=== PATIENT | female | born 1965 | race Caucasian/White ===

== ENCOUNTER → 2025-04-25 | Outpatient (CLI) | payer MEDICAID, SELFPAY ==
--- NOTE | 2025-04-25 16:58 | XR_ITS ---
Examination: Hand, left 3 views Technique: Hand AP, oblique, lateral 3 views Date and time of exam: April 25, 2025 7011 hours INDICATIONS: Acute fracture left hand fifth digit 2 weeks ago FINDINGS: Early healing impacted angulated fracture proximal aspect proximal phalanx fifth digit Moderate osteopenia IMPRESSION: Early healing impacted angulated fracture proximal aspect proximal phalanx fifth digit 3 mm opaque foreign body projecting in the soft tissue adjacent to the distal aspect proximal phalanx first digit
--- NOTE | 2025-04-25 16:58 | XR_ITS ---
Examination: Wrist, left 3 views Technique: Wrist AP, oblique, lateral 3 views Date and time of exam: April 15, 2025 1711 hours INDICATIONS: Acute fracture fifth digit 2 weeks ago FINDINGS: Early healing angulated impacted fracture proximal aspect proximal phalanx fifth digit Tiny opaque foreign body in the soft tissue adjacent to the proximal phalanx first digit IMPRESSION: Early healing fracture proximal phalanx fifth digit
== END | disposition home or self-care (01) ==
PROVIDERS: Referring Provider Nurse Practitioner Gerontology; Visit Provider Nurse Practitioner Gerontology
DX: S62.617A Displaced fracture of proximal phalanx of left little finger, initial encounter for closed fracture (principal); S60.352A Superficial foreign body of left thumb, initial encounter; X58.XXXA Exposure to other specified factors, initial encounter
CPT/HCPCS: 73110; 73130